=== PATIENT | female | born 1965 | race Caucasian/White ===

== ENCOUNTER 2022-09-27 09:46 | Outpatient (CLI) | payer BC | END 2022-09-27 09:47 | disposition home or self-care (01) | LOC: CSHCT 09:46 | PROVIDERS: ATTEND Physician Assistant Medical | DX: R10.13 Epigastric pain (principal); R11.2 Nausea with vomiting, unspecified; K21.9 Gastro-esophageal reflux disease without esophagitis; K44.9 Diaphragmatic hernia without obstruction or gangrene; R19.4 Change in bowel habit | CPT/HCPCS: 74177 ==